=== PATIENT | female | born 1975 | race Caucasian/White ===

== ENCOUNTER 2018-11-10 20:09 | Emergency (ER) | payer MEDICAID ==
[2018-11-10] MEDS ORDERED: KETOROLAC 30 MG INJ IM (20:37)
[2018-11-10] MEDS ORDERED: ONDANSETRON (ODT) 4 MG TAB ODT (20:37)
[2018-11-10] MEDS: ACETAMINOPHEN 500 MG TAB PO (21:03)
== END 2018-11-10 22:17 | disposition home or self-care (01) ==
LOC: FTE 22:17
DX: M79.642 Pain in left hand (principal); R51 Headache
CPT/HCPCS: 73130; 73130-LT; 99283-25